=== PATIENT | female | born 1995 | race Two or more races ===

== ENCOUNTER 2023-11-08 08:31 | Emergency (ER) | payer OTHER ==
[~2023-11-08] VITALS: Ht 157.5 cm; Wt 49.4 kg
[2023-11-08] MEDS: IV NS 0.9% 1,000 ML BAG IV ONE (08:57)
[2023-11-08 09:13] LABS: BASOPHILS # (AUTO) 0.1 K/uL (0.0-0.2); BASOPHILS % (AUTO) 0.6 % (0.0-2.0); EOSINOPHILS # (AUTO) 0.1 K/uL (0.0-0.7); HEMATOCRIT 48 % (33-45); LYMPHOCYTES # (AUTO) 2.4 K/uL (0.8-4.8); LYMPHOCYTES % (AUTO) 17.4 % (20.0-44.0); MEAN CORPUSCULAR HEMOGLOBIN 30 PG (26.0-33.0); MEAN CORPUSCULAR HGB CONC 34 g/dl (31.0-36.0); MEAN CORPUSCULAR VOLUME 89 fL (82-100); MONOCYTES # (AUTO) 0.8 K/uL (0.1-1.30); MONOCYTES % (AUTO) 5.4 % (2.0-12.0); NEUTROPHILS # (AUTO) 10.5 K/uL (1.8-8.9); NEUTROPHILS % (AUTO) 75.6 % (43.0-81.0); PLATELET COUNT (AUTO) 369 K/uL (150-450); RED BLOOD CELL COUNT(AUTO) 5.39 MIL/uL (4.0-5.2); RED CELL DISTRIBUTION WIDTH 13.2 % (11.5-15.0); WHITE BLOOD COUNT (AUTO) 13.9 K/uL (4.3-11.0)
[2023-11-08 09:18] LABS: CALCIUM, SERUM 9.1 mg/dL (8.5-10.1); CREATININE 0.9 mg/dL (0.6-1.3); POTASSIUM 3.6 mmol/L (3.5-5.1)
[2023-11-08 09:24] LABS: ALBUMIN 4.2 g/dL (3.4-5.0); BILIRUBIN,DIRECT 0.2 mg/dL (0.0-0.2); BILIRUBIN,TOTAL 1.3 mg/dL (0.2-1.0); TOTAL PROTEIN, SERUM 8.1 g/dL (6.4-8.2)
[2023-11-08 09:26] LABS: APPEARANCE,URINE CLEAR (CLEAR); BILIRUBIN,URINE NEGATIVE (NEGATIVE); BLOOD, URINE NEGATIVE Ery/uL (NEGATIVE); COLOR,URINE YELLOW (YELLOW); KETONES,URINE 1+ mg/dL (NEGATIVE); LEUKOCYTE ESTERASE ,URINE NEGATIVE (NEGATIVE); NITRITE, URINE NEGATIVE (NEGATIVE); PROTEIN,URINE NEGATIVE (NEGATIVE); UGLUCOSE NEGATIVE (NEGATIVE); UROBILINOGEN,URINE 0.2 EU/dL (0.2)
[2023-11-08 09:27] LABS: ADD URINE CULTURE NO; BACTERIA,URINE None seen /HPF (None Seen); PREGNANCY TEST URINE QUAL NEGATIVE (NEGATIVE); RBC,URINE 0-2 /HPF (0-2); SQUAMOUS EPITHELIAL CELL,UR Rare /HPF (None Seen); WBC,URINE 0-2 /HPF (0-3)
[2023-11-08] MEDS ORDERED: ONDA4TAB5 PO (10:13)
[2023-11-08] MEDS ORDERED: FAMO-131 PO (10:13)
[2023-11-08] MEDS ORDERED: MAG HYDROX/AL HYDROX/SIMETH 30 ML UDC ONE (10:17)
[2023-11-08] MEDS ORDERED: ONDANSETRON HCL/PF 4 MG/2 ML VIAL ONE (10:17)
[2023-11-08] MEDS ORDERED: LIDOCAINE VISCOUS 2% UD 15 ML UDC ONE (10:18)
[2023-11-08] MEDS ORDERED: FAMOTIDINE/PF INJ 20 MG/2 ML VIAL IV ONE (10:18)
[2023-11-08] MEDS: FAMOTIDINE/PF INJ 20 MG/2 ML VIAL IV ONE (10:19)
[2023-11-08] MEDS: ONDANSETRON HCL/PF 4 MG/2 ML VIAL IV ONE (10:20)
[2023-11-08] MEDS: LIDOCAINE VISCOUS 2% UD 15 ML UDC MM ONE (10:20)
[2023-11-08] MEDS: MAG HYDROX/AL HYDROX/SIMETH 30 ML UDC PO ONE (10:21)
[2023-11-08 11:07] VITALS: BP 123/65; TEMP 98.1; O2SAT 100
== END 2023-11-08 11:12 | disposition home or self-care (01) ==
LOC: ER 08:43
DX: R10.13 Epigastric pain (principal); R11.2 Nausea with vomiting, unspecified; E86.0 Dehydration
CPT/HCPCS: 99285; 96374; 76705; 96375; 93005; 85025; 80048; 83690; 80076; 84703; 81001; 36415; J3490; J2405; J7030

== ENCOUNTER 2025-03-04 15:44 | Emergency (ER) | payer OTHER ==
[~2025-03-04] VITALS: Ht 160 cm; Wt 52.6 kg
[~2025-03-04 15:44] MED LIST: FAMO-131 PO; ONDA4TAB5 PO
[2025-03-04 15:55] VITALS: BP 154/95; TEMP 97.9; O2SAT 100
== END 2025-03-04 16:15 | disposition home or self-care (01) ==
LOC: ER 15:48
DX: B00.1 Herpesviral vesicular dermatitis (principal); N89.8 Other specified noninflammatory disorders of vagina; R10.2 Pelvic and perineal pain